=== PATIENT | male | born 1965 | race Caucasian/White ===

== ENCOUNTER 2016-06-09 17:38 | Emergency (ER) | payer BC ==
[2016-06-09 17:53] VITALS: BP 132/97
[2016-06-09] MEDS ORDERED: Diphtheria,Pertussis(Acell),Tetanus Vaccine 0.5 ML SDV IM ONE (18:36)
--- NOTE | 2016-06-09 19:11 | EDM.PDOC ---
ED HPI Skin/Rash - General Chief Complaint: Laceration Stated Complaint: CUT LT INDEX FINGER Time Seen by Provider: 06/09/16 18:05 Source: Reports: Patient History Limitations: Reports: No limitations - History of Present Illness INITIAL COMMENTS - FREE TEXT/NARRATIVE: History of present illness: [51-year-old male presenting with a laceration to his left index finger. It is on the palmar side about 3 cm long and at the level of the PIP joint. Distally he has sensation and function intact completely. No other injuries. He is due for tetanus. He was breaking a steak but had no center and the metal from the inside of his stake cut his finger.] Review of systems: As per history of present illness and below otherwise all systems reviewed and negative. Past medical history: As per history of present illness and as reviewed below otherwise noncontributory. Surgical history: As per history of present illness and as reviewed below otherwise noncontributory. Social history: No reported history of drug or alcohol abuse. Family history: As per history of present illness and as reviewed below otherwise noncontributory. Physical exam: HEENT: Atraumatic, normocephalic, Lungs: Clear to auscultation Heart: S1S2, regular, negative Abdomen: Soft, nondistended, nontender Extremities: He has the laceration as I described above. It appears clean Neuro: Awake, alert, oriented. Exam nonfocal. Diagnostics: [] Therapeutics: [Procedure The area was prepped and draped in the usual fashion One percent lidocaine was used for local infiltration A tourniquet was applied to the base of the finger to minimize bleeding and in a bloodless field I was able to examine the wound and determined that there was no involvement of his flexor tendon. The wound is then closed with 5-0 Ethilon in a simple running fashion. He tolerated the procedure well Tetanus was given] Impression: [3 cm laceration to the left index finger] Plan: [Sutures out in 10 days followup if any signs of infection occur. I will send him out with a few Busby 15 5/325, for pain] Definitive disposition and diagnosis as appropriate pending reevaluation and review of above. - Related Data Allergies Allergy/AdvReac Type Severity Reaction Status Date / Time No Known Allergies Allergy Verified 06/09/16 17:54 Home Meds: Ambulatory Orders Medication Instructions Recorded Confirmed NK [No Known Home Meds] 06/09/16 06/09/16 Past Medical History HEENT History: Reports: Impaired vision - Infectious Disease History Infectious Disease History: Reports: C-difficile Social & Family History - Tobacco Use Smoking Status *Q: Never Smoker Second Hand Smoke Exposure: No - Caffeine Use Caffeine Use: Reports: Coffee - Alcohol Use Days Per Week of Alcohol Use: 3 Number of Drinks Per Day: 2 Total Drinks Per Week: 6 - Recreational Drug Use Recreational Drug Use: No ED ROS GENERAL - Review of Systems Review Of Systems: ROS reveals no pertinent complaints other than HPI. ED EXAM, SKIN/RASH Exam: See Below Course - Vital Signs Last Recorded V/S: Last Vital Signs Temp 36.2 C 06/09/16 18:00 Pulse 85 06/09/16 18:00 Resp 16 06/09/16 18:00 BP 132/97 H 06/09/16 18:00 Pulse Ox 95 06/09/16 18:00 - Orders/Labs/Meds Orders: Active Orders 24 hr Category Date Time Status Vaccines to be Administered [RC] PER UNIT ROUTINE Care 06/09/16 18:36 Active Meds: Medications Discontinued Medications Generic Name Dose Route Start Last Admin Trade Name Freq PRN Reason Stop Dose Admin Diphtheria/Tetanus/Acell Pertussis 0.5 ml 06/09/16 18:36 06/09/16 18:44 Adacel IM 06/09/16 18:37 0.5 ml .ONCE ONE Administration Lidocaine HCl 5 ml 06/09/16 18:37 06/09/16 18:43 Xylocaine-Mpf 1% INJECT 06/09/16 18:38 5 ml ONETIME ONE Administration Departure - Departure Time of Disposition: 19:11 Disposition: Home, Self-Care 01 Condition: good Clinical Impression: Finger laceration Qualifiers: Encounter type: initial encounter Qualified Code(s): S61.219A - Laceration without foreign body of unspecified finger without damage to nail, initial encounter Forms: ED Department Discharge Additional Instructions: Please follow up in the clinic in 10 days for suture removal or sooner if signs of infection occur. - My Orders Last 24 Hours: My Active Orders 06/09/16 18:36 Vaccines to be Administered [RC] PER UNIT ROUTINE - Assessment/Plan Last 24 Hours: My Active Orders 06/09/16 18:36 Vaccines to be Administered [RC] PER UNIT ROUTINE
== END 2016-06-09 19:35 | disposition home or self-care (01) ==
LOC: JP.ED 17:38
DX: S61.211A Laceration without foreign body of left index finger without damage to nail, initial encounter (principal); Z23 Encounter for immunization; W22.8XXA Striking against or struck by other objects, initial encounter
CPT/HCPCS: 12002; 90471; 90715; 99283-25

== ENCOUNTER 2020-06-04 04:05 | Emergency (ER) | payer BC ==
[2020-06-04 04:56] VITALS: BP 138/80; PULSE 67
[2020-06-04] MEDS ORDERED: cefTRIAXone 1 GM, Lidocaine 1% 2.1 ML IM ONE ×2 (04:56)
--- NOTE | 2020-06-04 04:56 | EDM.PDOC ---
ED HPI GENERAL MEDICAL PROBLEM - General Chief Complaint: Upper Extremity Injury/Pain Stated Complaint: RIGHT HAND INFECTION Time Seen by Provider: 06/04/20 04:48 Source of Information: Reports: Patient History Limitations: Reports: No Limitations - History of Present Illness INITIAL COMMENTS - FREE TEXT/NARRATIVE: Tyree is a 55-year-old presenting to the ED for red, hot, painful, and swollen right thumb. Patient states his symptoms have been worsening over the last couple of days. He is unsure if he has a piece of wood sliver in the thumb. He did google his symptoms tonight and I told him to come to the ER for an antibiotic as is likely an infection. Denies any fever or chills. Patient states that the swelling started after he got his thumb caught between 2 logs of firewood and may have a sliver in his thumb. He then noted that there was swelling under the nail and alongside the medial aspect of the thumbnail. Over the last 2 days has become more swollen, hot, red, and exquisitely tender. He has been unable to sleep because a throbbing pain. Right Finger-Thumb Pain Score (Numeric/FACES): 9 - Related Data Allergies Allergy/AdvReac Type Severity Reaction Status Date / Time No Known Allergies Allergy Verified 06/04/20 04:48 Home Meds: Home Meds ARIPiprazole [Abilify] 2 mg PO DAILY 06/04/20 [History] Celecoxib [CeleBREX] 200 mg PO BID 06/04/20 [History] Sertraline [Zoloft] 100 mg PO DAILY 06/04/20 [History] tiZANidine [Zanaflex] 1 tab PO TID 06/04/20 [History] Past Medical History HEENT History: Reports: Impaired Vision - Infectious Disease History Infectious Disease History: Reports: C-Difficile Social & Family History - Caffeine Use Caffeine Use: Reports: Coffee Review of Systems - Review of Systems Review Of Systems: See Below Constitutional: Reports: No Symptoms Respiratory: Reports: No Symptoms Cardiovascular: Reports: No Symptoms GI/Abdominal: Reports: No Symptoms Musculoskeletal: Reports: Hand Pain (A very swollen, hot, tender, and red right thumb) Skin: Reports: Erythema, Wound Neurological: Reports: No Symptoms Psychiatric: Reports: No Symptoms ED EXAM, GENERAL - Physical Exam Exam: See Below Exam Limited By: No Limitations General Appearance: Alert, Anxious, Moderate Distress Extremities: Increased Warmth, Other (Abscess noted in the paronychial fold of the right thumb extending into the nailbed. The area is hot, red, exquisitely tender and swollen. The abscess is pointing at what appears to be a puncture site.) Neurological: Alert, Oriented, Normal Cognition, No Motor/Sensory Deficits Skin Exam: Erythema, Increased Warmth, Wound/Incision (The medial right paronychial fold of the thumb. There is purulent material under the dermis extending into the subungual region. There is not an obvious felon) Lymphatic: No Adenopathy ED TRAUMA EXTREMITY PROCEDURES - I&D Site: Medial right thumb in the paronychial fold Skin Prep: Isopropyl Alcohol (Alcohol) Area Incised With: Needle (18-gauge needle) Drainage: Purulent, Bloody, Moderate Amount Probed to Break Up Loculations: No Complications: No Progress/Comments: And thumb to express as much of the purulent material as possible. The wound was left open with a bandage applied over the top. Compression of the nailbed Course - Vital Signs Last Recorded V/S: Last Vital Signs Temp 36.6 C 06/04/20 04:55 Pulse 67 06/04/20 04:55 Resp 16 06/04/20 04:55 BP 138/80 06/04/20 04:55 Pulse Ox 95 06/04/20 04:55 - Orders/Labs/Meds Meds: Medications Discontinued Medications Generic Name Dose Route Start Last Admin Trade Name Rogelioq PRN Reason Stop Dose Admin Ceftriaxone Sodium 1 gm/ 0 gm 06/04/20 04:56 06/04/20 05:09 Lidocaine HCl 2.1 ml IM 06/04/20 04:57 1 inj ONETIME ONE Administration - Re-Assessments/Exams Free Text/Narrative Re-Assessment/Exam: 06/04/20 05:03 the patient has a large medial paronychia with abscess tracking in the subungual area of the thumb. I I&D the wound and expressed as much of the purulent material as possible. We will start antibiotics with Rocephin 1 g IM and continue with oral Augmentin 875 mg twice daily. I did provide the patient with a small amount of hydrocodone for pain control but he should use ibuprofen as the mainstay of his pain medicine. He may do Epson salt soaks as well to relieve the pressure. Indications return to the ED were discussed and he was discharged in satisfactory condition. Departure - Departure Time of Disposition: 05:30 Disposition: Home, Self-Care 01 Clinical Impression: Acute paronychia of right thumb - Discharge Information Instructions: Paronychia Referrals: PCP,None [Primary Care Provider] - Forms: ED Department Discharge Care Plan Goals: We are initiating your antibiotics with a shot of Rocephin to get the medicine to a steady state and get ahead of the infection. I have also provided you with a prescription for Augmentin 875 mg twice daily to start this morning. There is a small amount of hydrocodone for severe pain. I would recommend ibuprofen 800 mg every 6 hours as the base of your pain treatment though. This will help reduce inflammation and the pain. You may soak the thumb and Epson salt solution which may help "dry out more of the infection and reduce swelling and pain. If you do elect to do this I would recommend it twice a day for the next several days. Once the infection clears, if there is still an area of tenderness, we will be happy to evaluate for foreign body at that time. Unfortunately with is infected as the thumb is right now we would end up causing much more damage to the tissue by probing for a foreign body and if we let it calm down and can better identify it. Sepsis Event Note (ED) - Focused Exam Vital Signs: Vital Signs Temp Pulse Resp BP Pulse Ox 06/04/20 04:55 36.6 C 67 16 138/80 95 - Problem List & Annotations (1) Acute paronychia of right thumb SNOMED Code(s): 49777988 Code(s): L03.011 - CELLULITIS OF RIGHT FINGER Status: Acute Priority: Medium Current Visit: Yes - Problem List Review Problem List Initiated/Reviewed/Updated: Yes
== END 2020-06-04 05:29 | disposition home or self-care (01) ==
LOC: JP.ED 04:05
DX: L03.011 Cellulitis of right finger (principal)
CPT/HCPCS: 10060; 96372; 99282; 99283-25; J0696